=== PATIENT | male | born 1960 | race Caucasian/White ===

== ENCOUNTER 2024-03-18 07:05 | Inpatient (IN) | payer OTHER ==
[2024-03-18] VITALS (22 sets, daily range): BP systolic 76–120; BP diastolic 48–77; PULSE 55–91; RESP 20–21; TEMP 95.7–97.8; O2SAT 93–100
[~2024-03-18] VITALS: Ht 188 cm; Wt 138.0 kg
[2024-03-18] MEDS ORDERED: FERR-13 GT (07:55)
[2024-03-18] MEDS ORDERED: CHLOR PO (07:55)
[2024-03-18] MEDS ORDERED: ATOR40TA GT (07:55)
[2024-03-18] MEDS ORDERED: CARV3.12 GT (07:55)
[2024-03-18] MEDS ORDERED: VALP-22 GT (07:55)
[2024-03-18] MEDS ORDERED: FOLI1TAB90 GT (07:55)
[2024-03-18] MEDS ORDERED: MIDO2.5T GT (07:55)
[2024-03-18] MEDS ORDERED: SCOP0.333 TP (07:55)
[2024-03-18] MEDS ORDERED: ASCO-518 GT (07:55)
[2024-03-18] MEDS ORDERED: CYAN100T21 GT (07:55)
[2024-03-18] MEDS ORDERED: MIRABULK GT (07:55)
[2024-03-18] MEDS ORDERED: QUET100T GT (07:55)
[2024-03-18] MEDS ORDERED: INSU-1343 SQ (07:55)
[2024-03-18] MEDS ORDERED: ALBU0.0912 INH ×2 (07:55)
[2024-03-18] MEDS ORDERED: PANT40EC GT (07:55)
[2024-03-18] MEDS ORDERED: FURO-570 GT (07:55)
[2024-03-18] MEDS ORDERED: LEVO25CA2 GT (07:55)
[2024-03-18 08:07] LABS: APPEARANCE,URINE CLOUDY (CLEAR); BILIRUBIN,URINE 2+ (NEGATIVE); BLOOD, URINE 2+ (NEGATIVE); LEUKOCYTE ESTERASE ,URINE 1+ (NEGATIVE); NITRITE, URINE POSITIVE (NEGATIVE); PH,URINE 5.5 (5.0-9.0); PROTEIN,URINE 2+ (NEGATIVE); UGLUCOSE NEGATIVE (NEGATIVE)
[2024-03-18] MEDS: NACL 0.9% 500 ML IV ONE (08:07)
[2024-03-18] MEDS ORDERED: CRUSHER, PILL MC ONE (08:10)
[2024-03-18 08:14] LABS: FLU A ANTIGEN negative (NEGATIVE); FLU B ANTIGEN NEGATIVE (NEGATIVE)
[2024-03-18 08:18] LABS: ALBUMIN 2.3 g/dL (3.4-5.0); ALKALINE PHOSPHATASE 803 U/L (50-136); BILIRUBIN,DIRECT 1.6 mg/dL (0.0-0.3); CREATINE KINASE, TOTAL 133 U/L (39-308); THYROID STIMULATING HORMONE 4.09 uIU/mL (0.34-3.74); TOTAL BILIRUBIN 2.5 mg/dL (0.0-1.0); TOTAL PROTEIN, SERUM 8.5 g/dL (6.4-8.2)
[2024-03-18 08:20] LABS: ANION GAP 14.8 (8-16); CALCIUM 9.8 mg/dL (8.5-10.1); CARBON DIOXIDE 32.8 mmol/L (21-32)
[2024-03-18] MEDS: MIDODRINE 5 MG TAB GT ONE (08:22)
[2024-03-18 08:23] LABS: CREATININE 4.4 mg/dL (0.6-1.3); POTASSIUM 6.6 mmol/L (3.5-5.1)
[2024-03-18 08:24] LABS: LACTIC ACID 4.3 mmol/L (0.4-2.0)
[2024-03-18] MEDS: SODIUM ZIRCONIUM CYCLOSILICATE 10 GM POWD.PACK GT ONE (08:25)
[2024-03-18 08:29] LABS: COLOR,URINE DARK YELLOW (YELLOW)
[2024-03-18 08:32] LABS: ICTOTEST NEGATIVE (NEGATIVE)
[2024-03-18 08:33] LABS: BACTERIA,URINE 3+ /HPF (None Seen); SQUAMOUS EPITHELIAL CELL,UR 4-10 (MOD) /LPF (0-3 (FEW)); WBC,URINE >25 (MANY) /HPF (0-5)
[2024-03-18] MEDS: DEXTROSE 50% 50 ML SYR IVP ONE (08:44)
[2024-03-18 08:47] LABS: HEMATOCRIT 20.4 % (36-52); MEAN CORPUSCULAR HEMOGLOBIN 36 pg (27-31); MEAN CORPUSCULAR HGB CONC 33 g/dL (33-37); MEAN CORPUSCULAR VOLUME 110.7 fL (80-94); PLATELET COUNT (AUTO) 49 K/uL (140-450); RED BLOOD CELL COUNT(AUTO) 1.84 MIL/uL (4.20-6.10); RED CELL DISTRIBUTION WIDTH 21.6 % (11.6-13.7); WHITE BLOOD COUNT (AUTO) 7.5 K/uL (4.8-10.8)
[2024-03-18] MEDS: INSULIN REGULAR, HUMAN 100 UNIT/ML VIAL IV ONE (08:47)
[2024-03-18] MEDS: CALCIUM GLUC 1 GM/50 mL NS BAG 50 ML IV ONE (08:50)
[2024-03-18 08:54] LABS: HEMOGLOBIN 6.7 g/dL (12.0-18.0)
[2024-03-18 08:55] LABS: LYMPHOCYTES % (MANUAL) 15 % (20-46); MONOCYTES % (MANUAL) 7 % (5-12)
[2024-03-18 08:56] LABS: BASOPHILS % (MANUAL) 0 % (0-2); EOSINOPHILS % (MANUAL) 0 % (0-4); PLATELET ESTIMATE DECREASED
[2024-03-18] MEDS ORDERED: NOREPINEPHRINE 4 MG/4 ML VIAL IV ONE (08:57)
[2024-03-18] MEDS: NOREPINEPHRINE 4 MG in DEXTROSE 5% 250 ML IV ONE (09:15)
[2024-03-18 09:17] LABS: BLOOD GAS BASE EXCESS 3.6 mmol/L (-2.0-3.0); BLOOD GAS HCO3 28.6 mmol/L (21.0-28.0); BLOOD GAS O2 SAT% 97.5 % (94.0-98.0); BLOOD GAS PCO2 46.6 mmHg (35.0-48.0); BLOOD GAS PH 7.406 (7.350-7.450); BLOOD GAS PO2 102.1 mmHg (83.0-108.0)
[2024-03-18 09:19] LABS: AMPHETAMINE, URINE NEGATIVE ng/ml (NEG <=1000); BARBITURATE, URINE NEGATIVE ng/ml (NEG <=200); BENZODIAZEPINE, URINE NEGATIVE ng/mL (NEG <=200); CANNABINOID, URINE NEGATIVE ng/mL (NEG <=50); COCAINE, URINE NEGATIVE ng/mL (NEG <=300); OPIATE, URINE POSITIVE ng/mL (NEG <=2000); PHENCYCLIDINE SCREEN,URINE NEGATIVE ng/mL (NEG <=25)
[2024-03-18 09:43] LABS: INR 1.71 (0.8-1.2); PARTIAL THROMBOPLASTIN TIME 34.8 secs (22-35.6); PROTHROMBIN TIME 17.4 secs (10.8-13.4)
[2024-03-18] MEDS ORDERED: HYDROcodone/APAP 5/325 MG 1 TAB TAB PO PRN (09:50)
[2024-03-18] MEDS ORDERED: VANCOMYCIN PER PHARMACY MC PRN (09:50)
[2024-03-18] MEDS ORDERED: MORPHINE SULFATE 4 MG/ML SYR IVP PRN (09:50)
[2024-03-18] MEDS ORDERED: ONDANSETRON 4 MG/2 ML VIAL IVP PRN (09:50)
[2024-03-18] MEDS ORDERED: VANCOMYCIN 1,000 MG VIAL ONE (10:00)
[2024-03-18] MEDS ORDERED: PIPERACILLIN/TAZOBACTAM 2.25 GM VIAL IV ONE (10:01)
[2024-03-18] MEDS: VANCOMYCIN 1,000 MG in DEXTROSE 5% 250 ML IV ONE (10:12)
[2024-03-18 10:16] LABS: ASPARTATE AMINOTRANSFERASE 71 U/L (15-37)
[2024-03-18 10:17] LABS: ALANINE AMINOTRANSFERASE 47 U/L (12-78)
[2024-03-18] MEDS: PIPERACILLIN/TAZOBACTAM 2.25 GM in DEXTROSE 5% 50 ML IV ONE (10:22)
[2024-03-18] MEDS ORDERED: NOREPINEPHRINE 4 MG in DEXTROSE 5% 250 ML IV PRN (10:30)
[2024-03-18] MEDS: NOREPINEPHRINE 4 MG/4 ML VIAL IV ONE (12:01)
[2024-03-18] MEDS: NOREPINEPHRINE 16 MG in DEXTROSE 5% 250 ML IV PRN (12:07)
[2024-03-18] MEDS: CALCIUM GLUC 1 GM/50 mL NS BAG 50 ML IV SCH (12:42)
[2024-03-18] MEDS: MEROPENEM 500 MG in NACL 0.9% 50 ML IV SCH (13:19)
[2024-03-18] MEDS ORDERED: MEROPENEM 500 MG in NACL 0.9% 50 ML IV SCH (14:00)
[2024-03-18] MEDS: FUROSEMIDE 100 MG/10 ML VIAL IV SCH (14:18)
[2024-03-18] MEDS: ALBUMIN HUMAN 25% 100 ML IV SCH (14:18)
[2024-03-18 14:44] LABS: LACTIC ACID 4.4 mmol/L (0.4-2.0)
[2024-03-18 15:51] LABS: CALCIUM 10.4 mg/dL (8.5-10.1); CARBON DIOXIDE 30.2 mmol/L (21-32)
[2024-03-18 15:59] LABS: POTASSIUM 6.2 mmol/L (3.5-5.1)
[2024-03-18 16:00] LABS: CREATININE 4.3 mg/dL (0.6-1.3)
[2024-03-18] MEDS: LORazepam 2 MG/ML VIAL ONE (17:45)
[2024-03-18] MEDS: LORazepam 2 MG/ML VIAL IVP ONE (18:25)
[2024-03-18 19:19] LABS: BASOPHILS # (AUTO) 0.1 K/uL (0.00-0.22); BASOPHILS % (AUTO) 1.6 % (0.0-2.0); EOSINOPHILS # (AUTO) 0.1 K/uL (0-0.4); EOSINOPHILS % (AUTO) 1.1 % (0.0-4.0); HEMOGLOBIN 7.6 g/dL (12.0-18.0); LYMPHOCYTES # (AUTO) 0.3 K/uL (2.0-11.5); LYMPHOCYTES % (AUTO) 3.9 % (20.5-51.1); MEAN CORPUSCULAR HEMOGLOBIN 35 pg (27-31); MEAN CORPUSCULAR HGB CONC 33 g/dL (33-37); MEAN CORPUSCULAR VOLUME 105.9 fL (80-94); MONOCYTES # (AUTO) 0.2 K/uL (0.8-1.0); MONOCYTES % (AUTO) 2.3 % (1.7-9.3); NEUTROPHILS # (AUTO) 8.1 K/uL (1.8-7.7); NEUTROPHILS % (AUTO) 91.1 % (42.2-75.2); PLATELET COUNT (AUTO) 72 K/uL (140-450); RED BLOOD CELL COUNT(AUTO) 2.17 MIL/uL (4.20-6.10); RED CELL DISTRIBUTION WIDTH 22.5 % (11.6-13.7); WHITE BLOOD COUNT (AUTO) 8.9 K/uL (4.8-10.8)
[2024-03-19] VITALS (30 sets, daily range): BP systolic 92–141; BP diastolic 41–63; PULSE 82–97; RESP 18–26; TEMP 98.4–100.6; O2SAT 92–99
[2024-03-19] MEDS: NOREPINEPHRINE 4 MG/4 ML VIAL IV ONE ×2 (01:38→06:40)
[2024-03-19 05:19] LABS: BASOPHILS % (AUTO) 0.1 % (0.0-2.0); EOSINOPHILS % (AUTO) 0.3 % (0.0-4.0); LYMPHOCYTES # (AUTO) 0.8 K/uL (2.0-11.5); LYMPHOCYTES % (AUTO) 5.3 % (20.5-51.1); MEAN CORPUSCULAR HEMOGLOBIN 35 pg (27-31); MEAN CORPUSCULAR HGB CONC 33 g/dL (33-37); MEAN CORPUSCULAR VOLUME 106.3 fL (80-94); MONOCYTES # (AUTO) 0.5 K/uL (0.8-1.0); MONOCYTES % (AUTO) 3.3 % (1.7-9.3); NEUTROPHILS # (AUTO) 14.4 K/uL (1.8-7.7); PLATELET COUNT (AUTO) 101 K/uL (140-450); RED BLOOD CELL COUNT(AUTO) 1.32 MIL/uL (4.20-6.10); RED CELL DISTRIBUTION WIDTH 21.9 % (11.6-13.7); WHITE BLOOD COUNT (AUTO) 15.9 K/uL (4.8-10.8)
[2024-03-19 06:10] LABS: HEMATOCRIT 14.1 % (36-52); HEMOGLOBIN 4.6 g/dL (12.0-18.0)
[2024-03-19 07:05] LABS: BASOPHILS % (AUTO) 0.1 % (0.0-2.0); EOSINOPHILS % (AUTO) 0.3 % (0.0-4.0); HEMATOCRIT 22.5 % (36-52); HEMOGLOBIN 7.4 g/dL (12.0-18.0); LYMPHOCYTES # (AUTO) 0.9 K/uL (2.0-11.5); LYMPHOCYTES % (AUTO) 6.4 % (20.5-51.1); MEAN CORPUSCULAR HEMOGLOBIN 35 pg (27-31); MEAN CORPUSCULAR HGB CONC 33 g/dL (33-37); MEAN CORPUSCULAR VOLUME 105.6 fL (80-94); MONOCYTES # (AUTO) 0.5 K/uL (0.8-1.0); MONOCYTES % (AUTO) 3.4 % (1.7-9.3); NEUTROPHILS % (AUTO) 89.8 % (42.2-75.2); PLATELET COUNT (AUTO) 90 K/uL (140-450); RED BLOOD CELL COUNT(AUTO) 2.13 MIL/uL (4.20-6.10); RED CELL DISTRIBUTION WIDTH 22.3 % (11.6-13.7); WHITE BLOOD COUNT (AUTO) 14.5 K/uL (4.8-10.8)
[2024-03-19 07:15] LABS: ANION GAP 15.5 (8-16); CALCIUM 9.8 mg/dL (8.5-10.1); CARBON DIOXIDE 30.1 mmol/L (21-32); CREATININE 3.3 mg/dL (0.6-1.3); POTASSIUM 4.6 mmol/L (3.5-5.1)
[2024-03-19 07:33] LABS: ALBUMIN 2.6 g/dL (3.4-5.0); MAGNESIUM 2.3 mg/dL (1.8-2.4); TOTAL BILIRUBIN 2.8 mg/dL (0.0-1.0); TOTAL PROTEIN, SERUM 8.6 g/dL (6.4-8.2)
[2024-03-19 08:44] LABS: ANION GAP 15.5 (8-16); CALCIUM 10.1 mg/dL (8.5-10.1); CARBON DIOXIDE 30.1 mmol/L (21-32); POTASSIUM 4.6 mmol/L (3.5-5.1)
[2024-03-19 08:45] LABS: ALBUMIN 2.6 g/dL (3.4-5.0); CREATININE 3.3 mg/dL (0.6-1.3); MAGNESIUM 2.3 mg/dL (1.8-2.4); TOTAL BILIRUBIN 2.8 mg/dL (0.0-1.0); TOTAL PROTEIN, SERUM 8.6 g/dL (6.4-8.2)
[2024-03-19] MEDS: PANTOPRAZOLE 40 MG INJ VIAL IVP SCH (08:57)
[2024-03-19] MEDS: DEXTROSE 5% IV SCH (08:57)
[2024-03-19] MEDS: VANCOMYCIN HCL IV SCH (08:57)
[2024-03-19] MEDS ORDERED: PANTOPRAZOLE 40 MG TABEC PO SCH (09:00)
[2024-03-19] MEDS ORDERED: VANCOMYCIN HCL 1.5 GM in DEXTROSE 5% 250 ML IV SCH (09:00)
[2024-03-19] MEDS: MIDODRINE 5 MG TAB PO SCH (12:37)
[2024-03-19] MEDS ORDERED: ALGINATE DRESSING MC PRN (13:55)
[2024-03-19] MEDS ORDERED: HYDRAGUARD CREAM TP PRN (13:55)
[2024-03-19] MEDS: MEDS-TO-BEDS MC SCH (20:11)
[2024-03-20] VITALS (31 sets, daily range): BP systolic 19–121; BP diastolic 44–69; PULSE 83–97; RESP 18–24; TEMP 98.2–100.2; O2SAT 89–100
[2024-03-20] MEDS: HYDRAGUARD CREAM TP SCH (01:22)
[2024-03-20 05:47] LABS: BASOPHILS % (AUTO) 0.1 % (0.0-2.0); EOSINOPHILS # (AUTO) 0.1 K/uL (0-0.4); EOSINOPHILS % (AUTO) 0.3 % (0.0-4.0); LYMPHOCYTES # (AUTO) 1.6 K/uL (2.0-11.5); LYMPHOCYTES % (AUTO) 10.1 % (20.5-51.1); MEAN CORPUSCULAR HEMOGLOBIN 34 pg (27-31); MEAN CORPUSCULAR HGB CONC 32 g/dL (33-37); MEAN CORPUSCULAR VOLUME 106.7 fL (80-94); MONOCYTES # (AUTO) 0.9 K/uL (0.8-1.0); MONOCYTES % (AUTO) 5.5 % (1.7-9.3); NEUTROPHILS # (AUTO) 13.6 K/uL (1.8-7.7); PLATELET COUNT (AUTO) 97 K/uL (140-450); RED BLOOD CELL COUNT(AUTO) 2.04 MIL/uL (4.20-6.10); RED CELL DISTRIBUTION WIDTH 22.4 % (11.6-13.7); WHITE BLOOD COUNT (AUTO) 16.1 K/uL (4.8-10.8)
[2024-03-20 05:54] LABS: HEMATOCRIT 21.8 % (36-52); HEMOGLOBIN 6.9 g/dL (12.0-18.0)
[2024-03-20 07:03] LABS: ALBUMIN 2.2 g/dL (3.4-5.0); ANION GAP 7.1 (8-16); CALCIUM 9.6 mg/dL (8.5-10.1); CARBON DIOXIDE 32.3 mmol/L (21-32); CREATININE 2.8 mg/dL (0.6-1.3); MAGNESIUM 2.2 mg/dL (1.8-2.4); POTASSIUM 3.4 mmol/L (3.5-5.1); TOTAL BILIRUBIN 1.5 mg/dL (0.0-1.0); TOTAL PROTEIN, SERUM 8.5 g/dL (6.4-8.2)
[2024-03-20] MEDS: POTASSIUM CHLORIDE 20% 40 MEQ/15 ML UDC GT SCH (09:10)
[2024-03-20] MEDS: KCL 20 MEQ IN 100 mL PREMIX 100 ML IV SCH (09:13)
[2024-03-20] MEDS: SPIRONOLACTONE 25 MG TAB PO SCH (09:14)
[2024-03-20] MEDS: ALGINATE DRESSING MC SCH (13:31)
[2024-03-20] MEDS ORDERED: DEXTROSE 50% 50 ML SYR IVP PRN (14:50)
[2024-03-20] MEDS ORDERED: NACL 0.9% 500 ML IV SCH (16:10)
[2024-03-20] MEDS ORDERED: ALBUMIN HUMAN 25% 50 ML IV SCH (16:10)
[2024-03-20 16:24] LABS: BASOPHILS % (AUTO) 0.2 % (0.0-2.0); EOSINOPHILS # (AUTO) 0.1 K/uL (0-0.4); EOSINOPHILS % (AUTO) 0.5 % (0.0-4.0); HEMATOCRIT 22.4 % (36-52); HEMOGLOBIN 7.4 g/dL (12.0-18.0); LYMPHOCYTES # (AUTO) 1.6 K/uL (2.0-11.5); LYMPHOCYTES % (AUTO) 10.8 % (20.5-51.1); MEAN CORPUSCULAR HEMOGLOBIN 35 pg (27-31); MEAN CORPUSCULAR HGB CONC 33 g/dL (33-37); MEAN CORPUSCULAR VOLUME 104.7 fL (80-94); MONOCYTES # (AUTO) 0.9 K/uL (0.8-1.0); MONOCYTES % (AUTO) 6.3 % (1.7-9.3); NEUTROPHILS # (AUTO) 12.1 K/uL (1.8-7.7); NEUTROPHILS % (AUTO) 82.2 % (42.2-75.2); PLATELET COUNT (AUTO) 88 K/uL (140-450); RED BLOOD CELL COUNT(AUTO) 2.14 MIL/uL (4.20-6.10); WHITE BLOOD COUNT (AUTO) 14.7 K/uL (4.8-10.8)
[2024-03-20 16:26] LABS: RED CELL DISTRIBUTION WIDTH 22.8 % (11.6-13.7)
[2024-03-20] MEDS ORDERED: ALBUMIN HUMAN 25% 100 ML IV SCH ×2 (16:41→16:45)
[2024-03-20] MEDS: ALBUMIN HUMAN 25% 100 ML IV SCH (17:27)
[2024-03-20] MEDS: MIDODRINE 5 MG TAB PO SCH (17:27)
[2024-03-20] MEDS: BLOOD GLUCOSE MONITORING 1 DEV DEV FS SCH (17:32)
[2024-03-20] MEDS: INSULIN LISPRO SLIDING SCALE 100 UNITS/ML VIAL SUBQ PRN (17:48)
[2024-03-20] MEDS: CEFEPIME 2,000 MG in DEXTROSE 5% 100 ML IV SCH (20:33)
[2024-03-20] MEDS: ACETAMINOPHEN 325 MG TAB PO PRN (23:31)
[2024-03-21] VITALS (32 sets, daily range): BP systolic 89–115; BP diastolic 51–66; PULSE 79–88; RESP 16–24; TEMP 98.4–100.7; O2SAT 95–99
[2024-03-21] MEDS: ALBUMIN HUMAN 25% 100 ML IV SCH (05:13)
[2024-03-21 05:24] LABS: BASOPHILS % (AUTO) 0.1 % (0.0-2.0); EOSINOPHILS # (AUTO) 0.1 K/uL (0-0.4); EOSINOPHILS % (AUTO) 0.6 % (0.0-4.0); HEMATOCRIT 21.6 % (36-52); HEMOGLOBIN 7.1 g/dL (12.0-18.0); LYMPHOCYTES # (AUTO) 1.8 K/uL (2.0-11.5); LYMPHOCYTES % (AUTO) 11.7 % (20.5-51.1); MEAN CORPUSCULAR HEMOGLOBIN 35 pg (27-31); MEAN CORPUSCULAR HGB CONC 33 g/dL (33-37); MEAN CORPUSCULAR VOLUME 105.6 fL (80-94); MONOCYTES # (AUTO) 0.9 K/uL (0.8-1.0); MONOCYTES % (AUTO) 5.6 % (1.7-9.3); PLATELET COUNT (AUTO) 80 K/uL (140-450); RED BLOOD CELL COUNT(AUTO) 2.05 MIL/uL (4.20-6.10); RED CELL DISTRIBUTION WIDTH 22.9 % (11.6-13.7); WHITE BLOOD COUNT (AUTO) 15.8 K/uL (4.8-10.8)
[2024-03-21 06:58] LABS: ALBUMIN 2.2 g/dL (3.4-5.0); ANION GAP 8.6 (8-16); CALCIUM 9.6 mg/dL (8.5-10.1); CARBON DIOXIDE 33.8 mmol/L (21-32); CREATININE 2.8 mg/dL (0.6-1.3); MAGNESIUM 2.2 mg/dL (1.8-2.4); POTASSIUM 3.4 mmol/L (3.5-5.1); TOTAL BILIRUBIN 1.1 mg/dL (0.0-1.0); TOTAL PROTEIN, SERUM 8.2 g/dL (6.4-8.2)
[2024-03-21] MEDS: POTASSIUM CHLORIDE 20% 40 MEQ/15 ML UDC GT SCH (08:31)
[2024-03-21] MEDS: NACL 0.9% 1,000 ML IV SCH (08:58)
[2024-03-21] MEDS ORDERED: CEFEPIME 1,000 MG in DEXTROSE 5% 100 ML IV SCH (09:00)
[2024-03-21] MEDS: CEFEPIME 1,000 MG in DEXTROSE 5% 50 ML IV SCH (09:36)
[2024-03-21] MEDS: ALBUTEROL SULFATE/IPRATROPIU 3 ML SOL IH SCH (13:40)
[2024-03-22] VITALS (33 sets, daily range): BP systolic 88–123; BP diastolic 41–70; PULSE 76–96; RESP 16–24; TEMP 97.2–98.6; O2SAT 90–100
[2024-03-22 05:21] LABS: BASOPHILS % (AUTO) 0.2 % (0.0-2.0); EOSINOPHILS # (AUTO) 0.2 K/uL (0-0.4); EOSINOPHILS % (AUTO) 1.2 % (0.0-4.0); LYMPHOCYTES # (AUTO) 1.4 K/uL (2.0-11.5); LYMPHOCYTES % (AUTO) 8.7 % (20.5-51.1); MEAN CORPUSCULAR HEMOGLOBIN 34 pg (27-31); MEAN CORPUSCULAR HGB CONC 32 g/dL (33-37); MEAN CORPUSCULAR VOLUME 106.1 fL (80-94); MONOCYTES # (AUTO) 1.1 K/uL (0.8-1.0); NEUTROPHILS # (AUTO) 13.4 K/uL (1.8-7.7); NEUTROPHILS % (AUTO) 82.9 % (42.2-75.2); PLATELET COUNT (AUTO) 73 K/uL (140-450); RED BLOOD CELL COUNT(AUTO) 1.94 MIL/uL (4.20-6.10); RED CELL DISTRIBUTION WIDTH 22.4 % (11.6-13.7); WHITE BLOOD COUNT (AUTO) 16.1 K/uL (4.8-10.8)
[2024-03-22 06:18] LABS: ALBUMIN 2.2 g/dL (3.4-5.0); ANION GAP 8.1 (8-16); CALCIUM 9.8 mg/dL (8.5-10.1); CARBON DIOXIDE 34.6 mmol/L (21-32); CREATININE 2.5 mg/dL (0.6-1.3); MAGNESIUM 2.2 mg/dL (1.8-2.4); POTASSIUM 3.7 mmol/L (3.5-5.1); TOTAL BILIRUBIN 0.8 mg/dL (0.0-1.0); TOTAL PROTEIN, SERUM 8.3 g/dL (6.4-8.2)
[2024-03-22 06:19] LABS: HEMATOCRIT 20.6 % (36-52); HEMOGLOBIN 6.5 g/dL (12.0-18.0)
[2024-03-22] MEDS: ACETAZOLAMIDE SOD 250 MG TAB PO SCH (08:43)
[2024-03-22] MEDS: KCL 20 MEQ IN 100 mL PREMIX 200 ML IV SCH (08:44)
[2024-03-22 12:09] LABS: FOLIC ACID > 20.00 ng/mL (>3.0)
[2024-03-22 14:03] LABS: HEMATOCRIT 24.5 % (36-52); HEMOGLOBIN 7.7 g/dL (12.0-18.0); MEAN CORPUSCULAR HEMOGLOBIN 33 pg (27-31); MEAN CORPUSCULAR HGB CONC 32 g/dL (33-37); MEAN CORPUSCULAR VOLUME 103.7 fL (80-94); PLATELET COUNT (AUTO) 80 K/uL (140-450); RED BLOOD CELL COUNT(AUTO) 2.37 MIL/uL (4.20-6.10); RED CELL DISTRIBUTION WIDTH 23.9 % (11.6-13.7)
[2024-03-22 14:50] LABS: EOSINOPHILS % (MANUAL) 2 % (0-4); LYMPHOCYTES % (MANUAL) 14 % (20-46); MONOCYTES % (MANUAL) 7 % (5-12)
[2024-03-22 14:51] LABS: HYPOCHROMASIA 2+; METAMYELOCYTES % 1 % (0-0); MYELOCYTES % 1 % (0-0); PLATELET ESTIMATE ADEQUATE; POLYCHROMASIA 1+
[2024-03-22 14:52] LABS: ANISOCYTOSIS 2+; TARGET CELLS 1+; TEAR DROP CELLS 1+
[2024-03-22 15:07] LABS: ALBUMIN, UR 24.2 % (.); ALPHA-1-GLOBULIN, UR 5.8 % (.); ALPHA-2-GLOBULIN, UR 11.6 % (.); GAMMA GLOBULIN, UR 15.4 % (.)
[2024-03-23] VITALS (32 sets, daily range): BP systolic 85–119; BP diastolic 47–73; PULSE 76–86; RESP 12–29; TEMP 97.8–99.2; O2SAT 91–100
[2024-03-23 06:19] LABS: ALBUMIN 2.3 g/dL (3.4-5.0); ANION GAP 13.1 (8-16); CALCIUM 9.2 mg/dL (8.5-10.1); CARBON DIOXIDE 30.7 mmol/L (21-32); CREATININE 2.1 mg/dL (0.6-1.3); MAGNESIUM 2.1 mg/dL (1.8-2.4); POTASSIUM 3.8 mmol/L (3.5-5.1); TOTAL BILIRUBIN 0.7 mg/dL (0.0-1.0); TOTAL PROTEIN, SERUM 8.5 g/dL (6.4-8.2)
[2024-03-23 08:57] LABS: BASOPHILS % (AUTO) 0.2 % (0.0-2.0); EOSINOPHILS # (AUTO) 0.2 K/uL (0-0.4); EOSINOPHILS % (AUTO) 1.7 % (0.0-4.0); HEMATOCRIT 24.7 % (36-52); HEMOGLOBIN 7.7 g/dL (12.0-18.0); LYMPHOCYTES # (AUTO) 1.8 K/uL (2.0-11.5); LYMPHOCYTES % (AUTO) 14.2 % (20.5-51.1); MEAN CORPUSCULAR HEMOGLOBIN 33 pg (27-31); MEAN CORPUSCULAR HGB CONC 31 g/dL (33-37); MEAN CORPUSCULAR VOLUME 103.6 fL (80-94); MONOCYTES % (AUTO) 8.2 % (1.7-9.3); NEUTROPHILS # (AUTO) 9.5 K/uL (1.8-7.7); NEUTROPHILS % (AUTO) 75.7 % (42.2-75.2); PLATELET COUNT (AUTO) 117 K/uL (140-450); RED BLOOD CELL COUNT(AUTO) 2.38 MIL/uL (4.20-6.10); RED CELL DISTRIBUTION WIDTH 24.2 % (11.6-13.7); WHITE BLOOD COUNT (AUTO) 12.6 K/uL (4.8-10.8)
[2024-03-23 09:06] LABS: HAPTOGLOBIN 285 mg/dL (32-363)
[2024-03-23] MEDS: NACL 0.45% 1,000 ML IV SCH (10:22)
[2024-03-23 13:40] LABS: ALBUMIN 24.2 g/dL (3.2-5.6); ALPHA-1-GLOBULIN 5.8 g/dL (0.1 - 0.4); ALPHA-2-GLOBULIN 11.6 g/dL (0.4 - 1.2); GAMMA GLOBULIN 15.4 g/dL (0.5 - 1.6)
[2024-03-23] MEDS: ALBUTEROL SULFATE/IPRATROPIU 3 ML SOL IH PRN (15:57)
[2024-03-23] MEDS: ALBUMIN HUMAN 25% 100 ML IV SCH (17:34)
[2024-03-23] MEDS: CEFEPIME 2,000 MG in DEXTROSE 5% 100 ML IV SCH (20:27)
[2024-03-23] MEDS ORDERED: DEXTROSE 5% IV SCH (21:00)
[2024-03-23] MEDS ORDERED: CEFEPIME IV SCH (21:00)
[2024-03-24] VITALS (33 sets, daily range): BP systolic 92–133; BP diastolic 50–79; PULSE 72–94; RESP 12–27; TEMP 97.6–99.3; O2SAT 90–100
[2024-03-24] MEDS: NOREPINEPHRINE 4 MG/4 ML VIAL IV ONE (06:24)
[2024-03-24 16:49] LABS: ANION GAP 11.9 (8-16); CALCIUM 9.2 mg/dL (8.5-10.1); CARBON DIOXIDE 29.8 mmol/L (21-32); CREATININE 1.8 mg/dL (0.6-1.3); POTASSIUM 3.7 mmol/L (3.5-5.1)
[2024-03-25] VITALS (24 sets, daily range): BP systolic 83–123; BP diastolic 37–79; PULSE 57–97; RESP 12–28; TEMP 97.1–99.5; O2SAT 93–100
[2024-03-25 05:48] LABS: ANION GAP 10.7 (8-16); CALCIUM 9.1 mg/dL (8.5-10.1); CARBON DIOXIDE 29.9 mmol/L (21-32); CREATININE 1.8 mg/dL (0.6-1.3); POTASSIUM 3.6 mmol/L (3.5-5.1)
[2024-03-25] MEDS: FUROSEMIDE 40 MG/4 ML VIAL IVP ONE (15:27)
[2024-03-26] VITALS (14 sets, daily range): BP systolic 93–112; BP diastolic 57–74; PULSE 70–82; RESP 16–26; TEMP 96.9–98.1; O2SAT 94–97
[2024-03-26 09:38] LABS: BASOPHILS # (AUTO) 0.1 K/uL (0.00-0.22); BASOPHILS % (AUTO) 0.7 % (0.0-2.0); EOSINOPHILS # (AUTO) 0.3 K/uL (0-0.4); EOSINOPHILS % (AUTO) 2.8 % (0.0-4.0); HEMATOCRIT 22.6 % (36-52); HEMOGLOBIN 7.2 g/dL (12.0-18.0); LYMPHOCYTES # (AUTO) 1.5 K/uL (2.0-11.5); LYMPHOCYTES % (AUTO) 15.3 % (20.5-51.1); MEAN CORPUSCULAR HEMOGLOBIN 33 pg (27-31); MEAN CORPUSCULAR HGB CONC 32 g/dL (33-37); MEAN CORPUSCULAR VOLUME 103.4 fL (80-94); MONOCYTES # (AUTO) 0.6 K/uL (0.8-1.0); MONOCYTES % (AUTO) 6.4 % (1.7-9.3); NEUTROPHILS # (AUTO) 7.5 K/uL (1.8-7.7); NEUTROPHILS % (AUTO) 74.8 % (42.2-75.2); PLATELET COUNT (AUTO) 298 K/uL (140-450); RED BLOOD CELL COUNT(AUTO) 2.19 MIL/uL (4.20-6.10); WHITE BLOOD COUNT (AUTO) 10.1 K/uL (4.8-10.8)
[2024-03-26 09:53] LABS: ANION GAP 14.1 (8-16); CALCIUM 9.1 mg/dL (8.5-10.1); CARBON DIOXIDE 27.5 mmol/L (21-32); CREATININE 1.8 mg/dL (0.6-1.3); POTASSIUM 3.6 mmol/L (3.5-5.1)
[2024-03-26] MEDS ORDERED: CEFE2SOL IV (11:20)
[2024-03-27] VITALS (12 sets, daily range): BP systolic 104–112; BP diastolic 50–67; PULSE 74–93; RESP 21–32; TEMP 96.8–98.1; O2SAT 94–100
[2024-03-27 06:41] LABS: BASOPHILS # (AUTO) 0.1 K/uL (0.00-0.22); BASOPHILS % (AUTO) 0.5 % (0.0-2.0); EOSINOPHILS # (AUTO) 0.2 K/uL (0-0.4); EOSINOPHILS % (AUTO) 1.6 % (0.0-4.0); LYMPHOCYTES # (AUTO) 1.5 K/uL (2.0-11.5); LYMPHOCYTES % (AUTO) 12.5 % (20.5-51.1); MEAN CORPUSCULAR HEMOGLOBIN 33 pg (27-31); MEAN CORPUSCULAR HGB CONC 32 g/dL (33-37); MEAN CORPUSCULAR VOLUME 102.9 fL (80-94); MONOCYTES # (AUTO) 0.6 K/uL (0.8-1.0); MONOCYTES % (AUTO) 5.3 % (1.7-9.3); NEUTROPHILS # (AUTO) 9.7 K/uL (1.8-7.7); NEUTROPHILS % (AUTO) 80.1 % (42.2-75.2); PLATELET COUNT (AUTO) 315 K/uL (140-450); RED BLOOD CELL COUNT(AUTO) 2.06 MIL/uL (4.20-6.10); RED CELL DISTRIBUTION WIDTH 21.4 % (11.6-13.7); WHITE BLOOD COUNT (AUTO) 12.1 K/uL (4.8-10.8)
[2024-03-27 06:44] LABS: HEMOGLOBIN 6.8 g/dL (12.0-18.0)
[2024-03-27 06:45] LABS: HEMATOCRIT 21.2 % (36-52)
[2024-03-27 06:54] LABS: ANION GAP 14.5 (8-16); CARBON DIOXIDE 27.2 mmol/L (21-32); CREATININE 1.7 mg/dL (0.6-1.3); POTASSIUM 3.7 mmol/L (3.5-5.1)
[2024-03-27 17:38] LABS: BASOPHILS # (AUTO) 0.1 K/uL (0.00-0.22); BASOPHILS % (AUTO) 0.5 % (0.0-2.0); EOSINOPHILS # (AUTO) 0.2 K/uL (0-0.4); EOSINOPHILS % (AUTO) 1.9 % (0.0-4.0); HEMATOCRIT 25.2 % (36-52); HEMOGLOBIN 8.1 g/dL (12.0-18.0); LYMPHOCYTES # (AUTO) 1.4 K/uL (2.0-11.5); LYMPHOCYTES % (AUTO) 14.2 % (20.5-51.1); MEAN CORPUSCULAR HEMOGLOBIN 32 pg (27-31); MEAN CORPUSCULAR HGB CONC 32 g/dL (33-37); MEAN CORPUSCULAR VOLUME 101.3 fL (80-94); MONOCYTES # (AUTO) 0.5 K/uL (0.8-1.0); MONOCYTES % (AUTO) 5.2 % (1.7-9.3); NEUTROPHILS # (AUTO) 7.4 K/uL (1.8-7.7); NEUTROPHILS % (AUTO) 78.2 % (42.2-75.2); PLATELET COUNT (AUTO) 347 K/uL (140-450); RED BLOOD CELL COUNT(AUTO) 2.49 MIL/uL (4.20-6.10); RED CELL DISTRIBUTION WIDTH 21.7 % (11.6-13.7); WHITE BLOOD COUNT (AUTO) 9.5 K/uL (4.8-10.8)
[2024-03-28 06:09] LABS: LD1 FRACTION 19 % (17-32); LD2 FRACTION 34 % (25-40); LD3 FRACTION 22 % (17-27); LD4 FRACTION 11 % (5-13); LD5 FRACTION 14 % (4-20)
[2024-03-29 16:15] LABS: LACTATE DEHYDROGENASE 225 IU/L (0-214)
[2024-03-29 16:21] LABS: A/G RATIO 0.6 (0.7 - 2.0); GLOBULIN, TOTAL 4.8 g/dL (2.0 - 4.5); M-SPIKE NOT OBSERVED (Not Observe)
== END 2024-03-27 18:30 | DRG 720 ==
LOC: MED 07:05 → MIC 09:52 → MTU 03-25 17:40
PROVIDERS: ADMIT Student in an Organized Health Care Education/Training Program; ATTEND Student in an Organized Health Care Education/Training Program
PROC: 5A1955Z Respiratory Ventilation, Greater than 96 Consecutive Hours (ICD-10-PCS; principal; 2024-03-18)
PROC: 06HY33Z Insertion of Infusion Device into Lower Vein, Percutaneous Approach (ICD-10-PCS; 2024-03-18)
PROC: B54BZZA Ultrasonography of Right Lower Extremity Veins, Guidance (ICD-10-PCS; 2024-03-18)
PROC: 02HV33Z Insertion of Infusion Device into Superior Vena Cava, Percutaneous Approach (ICD-10-PCS; 2024-03-18)
PROC: B548ZZA Ultrasonography of Superior Vena Cava, Guidance (ICD-10-PCS; 2024-03-18)
PROC: 5A1D70Z Performance of Urinary Filtration, Intermittent, Less than 6 Hours Per Day (ICD-10-PCS; 2024-03-19)
PROC: 30233N1 Transfusion of Nonautologous Red Blood Cells into Peripheral Vein, Percutaneous Approach (ICD-10-PCS; 2024-03-22)
PROC: 5A1D70Z Performance of Urinary Filtration, Intermittent, Less than 6 Hours Per Day (ICD-10-PCS; 2024-03-22)
DX: A41.9 Sepsis, unspecified organism (principal); J96.21 Acute and chronic respiratory failure with hypoxia; J69.0 Pneumonitis due to inhalation of food and vomit; R65.21 Severe sepsis with septic shock; N17.9 Acute kidney failure, unspecified; J18.9 Pneumonia, unspecified organism; I48.91 Unspecified atrial fibrillation; R53.2 Functional quadriplegia; Z20.822 Contact with and (suspected) exposure to COVID-19; E87.5 Hyperkalemia; G40.909 Epilepsy, unspecified, not intractable, without status epilepticus; E78.5 Hyperlipidemia, unspecified; R13.10 Dysphagia, unspecified; D50.9 Iron deficiency anemia, unspecified; Z93.0 Tracheostomy status; Z93.1 Gastrostomy status; Z79.01 Long term (current) use of anticoagulants; Z79.4 Long term (current) use of insulin; Z79.899 Other long term (current) drug therapy
CPT/HCPCS: 36415; 36430; 70450; 71045; 76770; 80048; 80053; 80076; 80202; 80305; 81001; 82533; 82550; 82607; 82746; 82948; 83010; 83605; 83625; 83735; 83880; 84165; 84443; 84484; 85025; 85610; 85730; 86886; 86900; 86901; 86920; 87040; 87070; 87081; 87086; 87186; 87205; 89220; 90935; 93005; 94002; 94003; 94640; 96365; 96368; 96375; 99291; J0610; J0692; J1644; J1815; J1940; J2060; J2185; J2470; J2543; J3370; J3371; J3480; J3490; J7060; P9016; P9046; Q0092